=== PATIENT | male | born 1955 | race Caucasian/White ===

== ENCOUNTER 2017-08-16 10:04 | Day surgery (SDC) | payer BC ==
[2017-08-11 14:09] VITALS: BMI 30.7
[2017-08-16] MEDS ORDERED: PROPOFOL 20 ML ONE ×2 (11:30)
[2017-08-16 13:31] VITALS: TEMP 97.7
[2017-08-16 13:56] VITALS: BP 122/73; PULSE 58
--- NOTE | 2017-08-18 15:22 | PATH ---
Surgical Pathology Report Patient Name: [facility]. Rec. #: [id number] /Age/Gender: 1955 (Age: 61) / M Account: [id number] Location: [facility]-ENDOSCOPY Taken: 08/16/2017 Received: 08/16/2017 Reported: 08/18/2017 Physicians: Tim Malcolm M.D. Specimen(s) Received BX DISTAL SIGMOID Clinical History Rule out colon cancer Polyp Final Diagnosis DISTAL SIGMOID, BIOPSY: HYPERPLASTIC POLYP. Electronically Signed Edwina Best M.D. Gross Description Received in formalin, labeled "distal sigmoid" is a meredith, irregular portion of soft tissue measuring 0.3 cm. in greatest dimension. The specimen is submitted in toto in one cassette. 08/17/2017 [facility]/17/2017
== END 2017-08-16 14:10 | disposition home or self-care (01) ==
LOC: FASU-ENDO 10:04
PROVIDERS: ATTEND Internal Medicine Gastroenterology
PROC: 0DBN8ZX Excision of Sigmoid Colon, Via Natural or Artificial Opening Endoscopic, Diagnostic (ICD-10-PCS; principal; 2017-08-16 12:55)
DX: Z12.11 Encounter for screening for malignant neoplasm of colon (principal); D12.5 Benign neoplasm of sigmoid colon; K57.30 Diverticulosis of large intestine without perforation or abscess without bleeding
CPT/HCPCS: 88305-TC

== ENCOUNTER 2019-01-25 17:13 | Emergency (ER) | payer BC ==
--- NOTE | 2019-01-25 17:22 | PDOC ---
History of Present Illness - General Chief Complaint: Pain Stated Complaint: LLQ pain,sent by MD Time Seen by Provider: 01/25/19 17:21 History Source: Patient Exam Limitations: No Limitations - History of Present Illness Initial Comments: 01/25/19 17:38 63 year old man with a history of psoriatic arthritis and hld who presents with LLQ abdominal pain that is dull and constant onset at 0400 associated with a decrease in appetite, nausea and 4 episodes of soft brown non bloody bowel movements. The patient has not had prior abdominal surgery and had a colonoscopy 1 year ago that was unremarkable. The patient denies chest pain, shortness of breath or fevers. He denies recent travel, recent sickness or sick contacts. The patient has no other complaints at this time. Past History - Past Medical History Allergies/Adverse Reactions: Allergies Allergy/AdvReac Type Severity Reaction Status Date / Time No Known Allergies Allergy Verified 01/25/19 17:15 Home Medications: Ambulatory Orders Atorvastatin Ca [Lipitor] 20 mg PO DAILY 08/11/17 C,E,Zinc,Copper 24/Om3/Lut/Tonya [Ocuvite Softgel] 1 each PO DAILY 08/11/17 Folic Acid 1 mg PO DAILY 08/11/17 Sulfasalazine 1,000 mg PO BID 08/11/17 Anemia: No Asthma: No Cancer: No Cardiac Disorders: No CVA: No COPD: No CHF: No Dementia: No Diabetes: No GI Disorders: No Disorders: No HTN: No Hypercholesterolemia: Yes Liver Disease: No Seizures: No Thyroid Disease: No - Surgical History Abdominal Surgery: No Appendectomy: No Cardiac Surgery: No Cholecystectomy: No Lung Surgery: No Neurologic Surgery: No Orthopedic Surgery: Yes (ORIF Right Wrist,Left knee arthroscopy) - Suicide/Smoking/Psychosocial Hx Smoking History: Never smoked Have you smoked in the past 12 months: No Hx Alcohol Use: No Drug/Substance Use Hx: No Substance Use Type: None Hx Substance Use Treatment: No Review of Systems - Review of Systems Able to Perform ROS?: Yes Is the patient limited Lao proficient: No Constitutional: No: Chills, Diaphoresis, Fever HEENTM: No: Blurred Vision, Tinnitus Respiratory: No: Cough, Orthopnea, Shortness of Breath Cardiac (ROS): No: Chest Pain, Chest Tightness ABD/GI: Yes: Nausea. No: Constipated, Diarrhea, Vomiting : No: Burning, Dysuria, Hematuria Musculoskeletal: No: Back Pain Neurological: No: Headache, Numbness, Paresthesia, Tingling *Physical Exam - Vital Signs Last Vital Signs Temp Pulse Resp BP Pulse Ox 98.7 F 88 18 163/102 H 100 01/25/19 17:14 01/25/19 17:14 01/25/19 17:14 01/25/19 17:14 01/25/19 17:14 - Physical Exam Comments: 01/25/19 17:45 GENERAL: Awake, alert, and fully oriented, in no acute distress HEAD: No signs of trauma, normocephalic, atraumatic EYES: EOMI, sclera anicteric, conjunctiva clear ENT: oropharynx clear without exudates. Moist mucosa NECK: Normal ROM, supple LUNGS: No distress, speaks full sentences, clear to auscultation bilaterally HEART: Regular rate and rhythm, normal S1 and S2, no murmurs, rubs or gallops, peripheral pulses normal and equal bilaterally. ABDOMEN: Soft, + slight LLQ tenderness to palpation, normoactive bowel sounds. No guarding, no rebound. No masses EXTREMITIES : Normal inspection, Normal range of motion, no edema. No clubbing or cyanosis. NEUROLOGICAL: Cranial nerves II through XII grossly intact. Normal speech, normal gait, no focal sensorimotor deficits SKIN: Warm, Dry, normal turgor, no rashes or lesions noted GENITAL: circumcised male, vertical lie of testes, no inguinal lymphadenopathy, nontenderness to epididymal palpation, no erythema, lesions or ulcers ED Treatment Course - LABORATORY CBC & Chemistry Diagram: 01/25/19 17:48 01/25/19 17:48 Medical Decision Making - Medical Decision Making 01/25/19 17:45 63 year old man with a history of psoriatic arthritis and hld who presents with LLQ abdominal pain that is dull and constant onset at 0400 associated with a decrease in appetite, nausea and 4 episodes of soft brown non bloody bowel movements. The patient has not had prior abdominal surgery and had a colonoscopy 1 year ago that was unremarkable. ED Course: consider diverticulitis vs crhons vs uc vs ibs vs colitis vs uti r/o testicular torsion cbc, cmp, ua, ucx 01/25/19 18:13 zofran and tylennol dosed 01/25/19 18:40 wbc: 14.5 CT abdpelvis ordered. Patient signed out to oncoming overnight team. *DC/Admit/Observation/Transfer Diagnosis at time of Disposition: Abdominal pain - Discharge Dispostion Condition at time of disposition: Stable - Referrals Referrals: Carrie Cleaning MD [Primary Care Provider] - - Patient Instructions - Post Discharge Activity
--- NOTE | 2019-01-25 17:23 | PDOC ---
Attending Attestation - Resident Resident Name: Nayeli Montero - ED Attending Attestation I have performed the following: I have examined & evaluated the patient, The case was reviewed & discussed with the resident, I agree w/resident's findings & plan, Exceptions are as noted - HPI HPI: 01/25/19 18:17 Left lower quadrant pain since yesterday. Mild nausea, no vomiting, several soft stools today but no miley diarrhea. No fever/chills, body aches, or other sign of systemic infection. Chronic left hip pain from psoriatic arthritis. Patient has never received biologicals for his arthritis. 01/25/19 19:01 - Physicial Exam PE: 01/25/19 18:59 Physical exam shows normal vital signs, no fever, and a benign abdomen. The abdomen is soft with only the slight suggestion of tenderness in the left lower quadrant to deep palpation, no guarding or rebound. - Medical Decision Making 01/25/19 18:59 Assessment: A white count is 14,000 with a left shift. However, pain has completely resolved. Abdomen now is soft and completely nontender. He still has his usual pain in the hip. Plan: Remainder of labs, CBC and chemistries, normal. Urinalysis is pending. CT is pending. Signed out to Dr. Carbajal [address] PM [address] results of [address] As noted, patient's pain has completely resolved and his abdomen is soft and nontender at present.
[2019-01-25 17:26] VITALS: TEMP 98.7; BMI 30.7
[2019-01-25] MEDS ORDERED: ONDANSETRON 4 MG/2 ML VIAL IVPUSH ONE (17:54)
[2019-01-25] MEDS ORDERED: ONDANSETRON 4 MG/2 ML VIAL ONE (17:55)
[2019-01-25] MEDS ORDERED: ACETAMINOPHEN 1000 MG/100 ML VIAL (NON FORMULARY) IVPB ONE (17:58)
[2019-01-25] MEDS ORDERED: ACETAMINOPHEN INJECTION 100 ML IVPB ONE (17:59)
[2019-01-25 18:12] LABS: BASO % 0.9 % (0-2.0); EOS % 0.6 % (0-4.5); HEMATOCRIT 50.4 % (35.4-49); HEMOGLOBIN 16.8 GM/dl (11.7-16.9); LYMPH % 10.1 % (8-40); MCH 32.7 pg (25.7-33.7); MCHC 33.3 g/dl (32.0-35.9); MEAN CELL VOLUME 98.1 fl (80-96); MONO % 4.4 % (3.8-10.2); PLATELET COUNT 220 K/MM3 (134-434); RBC 5.14 M/mm3 (4.00-5.60); RDW 13.1 % (11.9-15.9); WHITE BLOOD COUNT 14.6 K/mm3 (4.0-10.8)
[2019-01-25 18:20] LABS: ALBUMIN 4.5 g/dl (3.4-5.0); ALK PHOS 72 U/L (45-117); ANION GAP 7 MMOL/L (8-16); BLOOD UREA NITROGEN 18 mg/dl (7-18); CALCIUM 10.1 mg/dl (8.5-10); CHLORIDE 110 mmol/L (98-107); CO2 21 mmol/L (21-32); CREATININE 1.4 mg/dl (0.55-1.3); GLUCOSE,RANDOM 131 mg/dl (74-106); POTASSIUM 4.5 mmol/L (3.5-5.1); SGOT/AST 29 U/L (15-37); SGPT/ALT 25 U/L (13-61); SODIUM 138 mmol/L (136-145); TOT PROT 6.4 g/dl (6.4-8.2)
[2019-01-25 19:23] LABS: URINE BACTERIA 1+ /hpf (NEGATIVE); URINE RBC 20-30 /hpf (0-4); URINE WBC 0-2 (NEGATIVE)
[2019-01-25 21:02] VITALS: BP 147/92; PULSE 80
--- NOTE | 2019-01-25 21:06 | PDOC ---
*Physical Exam - Vital Signs Last Vital Signs Temp Pulse Resp BP Pulse Ox 98.7 F 80 18 147/92 100 01/25/19 17:14 01/25/19 21:02 01/25/19 21:02 01/25/19 21:02 01/25/19 21:02 <Suyapa Ferraro - Last Filed: 01/25/19 21:08> - Vital Signs Last Vital Signs Temp Pulse Resp BP Pulse Ox 98.7 F 80 18 147/92 100 01/25/19 17:14 01/25/19 21:02 01/25/19 21:02 01/25/19 21:02 01/25/19 21:02 <Cande Carbajal - Last Filed: 01/26/19 02:45> ED Treatment Course - LABORATORY CBC & Chemistry Diagram: 01/25/19 17:48 01/25/19 17:48 - ADDITIONAL ORDERS Additional order review: Laboratory Results 01/25/19 01/25/19 19:00 17:48 Sodium 138 Potassium 4.5 Chloride 110 H Carbon Dioxide 21 Anion Gap 7 L BUN 18 Creatinine 1.4 H Creat Clearance w eGFR 51.02 Random Glucose 131 H Calcium 10.1 H Total Bilirubin 1.0 AST 29 ALT 25 Alkaline Phosphatase 72 Total Protein 6.4 Albumin 4.5 Urine Color Yellow Urine Appearance Clear Urine pH 5.5 Urine Protein Trace Urine Glucose (UA) Negative Urine Ketones Negative Urine Blood 2+ H Urine Nitrite Negative Urine Bilirubin Negative Urine Urobilinogen 0.2 Ur Leukocyte Esterase Negative Urine WBC (Auto) 0-2 Urine RBC (Auto) 20-30 Urine Bacteria (Auto) 1+ 01/25/19 17:48 RBC 5.14 MCV 98.1 H MCHC 33.3 RDW 13.1 MPV 9.0 Neutrophils % 84.0 H Lymphocytes % 10.1 Monocytes % 4.4 Eosinophils % 0.6 Basophils % 0.9 - RADIOLOGY Radiograph Interpretation: EXAM#: TYPE/EXAM: RESULT: [id number] CT/ABDOMEN PELVIS CT WITH CONTR Abdomen and pelvis CT (with contrast) Clinical information: left lower quadrant pain Impression: A subtle 2 mm density is seen within the inferior pelvis adjacent to the left ureterovesical junction very likely representing an obstructing ureteral calculus, less likely a periureteral phlebolith. Mild left hydroureteronephrosis is seen to that level. There is associated left perirenal and periureteral soft tissue stranding on the basis of acute obstruction. Several 1 to 2 mm urinary bladder calculi are also seen. Prominent prostate enlargement is noted. Mild splenomegaly. Sigmoid diverticulosis without evidence of acute diverticulitis. Right inguinal hernia containing fat only. Reported By: Walter Boyer MD 01/25/19 20:29 01/25/19 21:08 - Medications Given in the ED: ED Medications Discontinued Medications Generic Name Dose Route Start Last Admin Trade Name Freq PRN Reason Stop Dose Admin Acetaminophen 1,000 mg 01/25/19 17:58 01/25/19 18:01 Ofirmev Injection - IVPB 01/25/19 17:59 1,000 mg ONCE ONE Administration Ondansetron HCl 4 mg 01/25/19 17:54 01/25/19 18:01 Zofran Injection IVPUSH 01/25/19 17:55 4 mg ONCE ONE Administration <Suyapa Ferraro - Last Filed: 01/25/19 21:08> - LABORATORY CBC & Chemistry Diagram: 01/25/19 17:48 01/25/19 17:48 - ADDITIONAL ORDERS Additional order review: Laboratory Results 01/25/19 01/25/19 19:00 17:48 Sodium 138 Potassium 4.5 Chloride 110 H Carbon Dioxide 21 Anion Gap 7 L BUN 18 Creatinine 1.4 H Creat Clearance w eGFR 51.02 Random Glucose 131 H Calcium 10.1 H Total Bilirubin 1.0 AST 29 ALT 25 Alkaline Phosphatase 72 Total Protein 6.4 Albumin 4.5 Urine Color Yellow Urine Appearance Clear Urine pH 5.5 Urine Protein Trace Urine Glucose (UA) Negative Urine Ketones Negative Urine Blood 2+ H Urine Nitrite Negative Urine Bilirubin Negative Urine Urobilinogen 0.2 Ur Leukocyte Esterase Negative Urine WBC (Auto) 0-2 Urine RBC (Auto) 20-30 Urine Bacteria (Auto) 1+ 01/25/19 17:48 RBC 5.14 MCV 98.1 H MCHC 33.3 RDW 13.1 MPV 9.0 Neutrophils % 84.0 H Lymphocytes % 10.1 Monocytes % 4.4 Eosinophils % 0.6 Basophils % 0.9 - Medications Given in the ED: ED Medications Discontinued Medications Generic Name Dose Route Start Last Admin Trade Name Freq PRN Reason Stop Dose Admin Acetaminophen 1,000 mg 01/25/19 17:58 01/25/19 18:01 Ofirmev Injection - IVPB 01/25/19 17:59 1,000 mg ONCE ONE Administration Ondansetron HCl 4 mg 01/25/19 17:54 01/25/19 18:01 Zofran Injection IVPUSH 01/25/19 17:55 4 mg ONCE ONE Administration <Cande Carbajal - Last Filed: 01/26/19 02:45> Medical Decision Making - Medical Decision Making Care of this patient received from Dr. Steve. Urinalysis reveals 20-30 RBCs per high-power field, 0-2 WBCs seized per hpf, 1+ bacteria; urine culture and sensitivity pending. As noted above, abdominal/pelvic CT consistent with left renal obstruction, likely secondary to 2 mm kidney stone seen at [facility]. No acute intestinal pathology seen. Results discussed with the patient and his . He is currently comfortable. Patient was asked about previous urologic abnormalities: No previous renal colic. He has seen a urologist in the past ([facility]) for elevated PSA. He states that he last saw this urologist approximately 6 years ago; at that time, PSA was in the 9-11 range consistently for several years. According the patient, no evidence of prostate malignancy was found at that time and elevated PSA was thought to be secondary to patient's arthritis. No urologic followup since then. Patient states that his [facility] urologist usually cannot be seen for a few weeks and asked for local referral. on-call: He is contacted and case discussed with him. He can see him in the office tomorrow. Patient will be started on Cipro 500 mg twice a day. First dose of Cipro given here in the emergency room. Flomax 0.4 mg daily will be started with first dose given here. Patient will take Tylenol for [id number] pain with Percocet 5/325 for more severe pain. Prescription for Percocet 5/325 every 6 hours as needed (#12) sent to patient's pharmacy. Patient asked for and was given 1 tab Percocet 5/325 prior to discharge. Patient was also given a prescription for Zofran ODT 4 mg (#10), to be used up to twice a day as needed for nausea. He was instructed to drink plenty of water and to return to the ER if he has persistent, severe pain or experiences vomiting/fever. Otherwise, the patient should contact 's office in the morning to confirm appointment for follow-up. <Cande Carbajal - Last Filed: 01/26/19 02:45> *DC/Admit/Observation/Transfer - Attestations Scribe Attestion: Documentation prepared by PRICE Garcia, acting as medical reimbursement manager for Emily Carbajaltracy Macedo 01/25/19 21:09 <Suyapa Ferraro - Last Filed: 01/25/19 21:08> <Cande Carbajal Valdez - Last Filed: 01/26/19 02:45> Diagnosis at time of Disposition: Abdominal pain, Obstruction of kidney - Discharge Dispostion Disposition: HOME Condition at time of disposition: Stable - Prescriptions Prescriptions: Ciprofloxacin HCl 500 mg PO BID #14 tablet Ondansetron [Zofran Odt -] 4 mg SL BID PRN #10 od.tablet PRN Reason: Nausea Oxycodone HCl/Acetaminophen [Percocet 5-325 mg Tablet] 1 tab PO Q6H PRN #12 tablet MDD 4 tabs PRN Reason: Severe Pain Tamsulosin HCl [Flomax] 0.4 mg PO DAILY #20 cap.er.24h - Referrals Referrals: Carrie Cleaning MD [Primary Care Provider] - - Patient Instructions Printed Discharge Instructions: Kidney Stones -- Adult Additional Instructions: Rest; drink plenty of water Cipro 500 mg twice a day for 1 week Tylenol as needed for mild to moderate pain; Percocet 5/325 up to 4 times a day as needed for severe pain Zofran ODT 4 mg up to twice a day as needed for nausea/vomiting Call your urologist tomorrow to arrange to be seen within the next 2 days Return to ER if you have persistent, severe pain or experience vomiting/fever - Post Discharge Activity
[2019-01-25] MEDS ORDERED: CIPROFLOXACIN 500 MG TABLET (RESTRICTED TO ID) PO ONE (21:10)
[2019-01-25] MEDS ORDERED: CIPROFLOXACIN 250 MG TABLET (RESTRICTED TO ID) PO ONE (21:18)
[2019-01-25] MEDS ORDERED: TAMSULOSIN HCL 0.4 MG CAP PO ONE (21:31)
[2019-01-25] MEDS ORDERED: TAMSULOSIN HCL 0.4 MG CAP ONE (21:34)
[2019-01-25] MEDS ORDERED: ONDANSETRON *ODT* 4 MG TABLET ONE ×2 (21:37→21:40)
== END 2019-01-25 21:45 | disposition home or self-care (01) ==
LOC: FER 17:13
PROC: 3E033NZ Introduction of Analgesics, Hypnotics, Sedatives into Peripheral Vein, Percutaneous Approach (ICD-10-PCS; principal; 2019-01-25)
PROC: 3E033GC Introduction of Other Therapeutic Substance into Peripheral Vein, Percutaneous Approach (ICD-10-PCS; 2019-01-25)
DX: R10.32 Left lower quadrant pain (principal); L40.50 Arthropathic psoriasis, unspecified; E78.00 Pure hypercholesterolemia, unspecified
CPT/HCPCS: 36415; 74177-TC; 80053; 81003; 81015; 85025; 87086; 99283-25; J0131